=== PATIENT | female | born 1955 | race Caucasian/White ===

== ENCOUNTER 2021-02-22 22:32 | Emergency (ER) | payer MEDICARE, OTHER ==
[~2021-02-22] VITALS: Ht 167.6 cm; Wt 97.5 kg
[~2021-02-22 22:32] MED LIST: ALBU6.7H IH; PRON IH
[2021-02-22 23:06] VITALS: BP 148/82
--- NOTE | 2021-02-22 23:30 | NUR ---
RASH X 4 DAYS. SCATTERED TO UPPER CHEST AND ARMS, URTICARIA. C/O "NERVED"
[2021-02-22] MEDS ORDERED: BEN50 PO (23:32)
[2021-02-22] MEDS ORDERED: HYDR28OI TP (23:32)
--- NOTE | 2021-02-23 00:14 | NUR ---
Patient discharged with v/s stable. Written and verbal after care instructions given and explained. Patient alert, oriented and verbalized understanding of instructions. Ambulatory with steady gait. All questions addressed prior to discharge. ID band removed. Patient advised to follow up with PMD. Rx of BENADRYL, HYDROCORTISONE given. Patient educated on indication of medication including possible reaction and side effects. Opportunity to ask questions provided and answered.
== END 2021-02-23 00:14 | disposition home or self-care (01) ==
LOC: MED 22:32
DX: L20.9 Atopic dermatitis, unspecified (principal); J45.909 Unspecified asthma, uncomplicated
CPT/HCPCS: 99282